=== PATIENT | female | born 1955 | race Caucasian/White ===

== ENCOUNTER → 2022-06-29 | Outpatient (CLI) | payer OTHER, MEDICARE ==
[~2022-06-29] MED LIST: CYCL5TAB PO; ERGO500014 PO; GABA300S PO; GEMF600T89 PO; GLIP-196 PO; HYDR25TA PO; LISI10TA24 PO; METF-445 PO; METO50TA18 PO; PRAS10TA6 PO; PRAV80TA21 PO; TRAM50TA4 PO; TYL3 PO
== END | disposition home or self-care (01) ==
LOC: RAH 08:11
PROVIDERS: ATTEND Nurse Practitioner
DX: Z12.31 Encounter for screening mammogram for malignant neoplasm of breast (principal)
CPT/HCPCS: 77067